=== PATIENT | female | born 1970 | race Two or more races ===

== ENCOUNTER → 2017-08-10 | Outpatient (CLI) | payer MEDICAID | END | disposition home or self-care (01) | LOC: Rad HDHVI 11:06 | PROVIDERS: ATTEND Internal Medicine | DX: I20.9 Angina pectoris, unspecified (principal); E78.5 Hyperlipidemia, unspecified | CPT/HCPCS: 93306 ==

== ENCOUNTER → 2017-08-26 | Outpatient (CLI) | payer MEDICAID ==
[~2017-08-26] VITALS: Ht 157.5 cm; Wt 93.4 kg
[~2017-08-26] MED LIST: ADENOSINE 78 MG in GIVE UN-DILUTED 0 ML IV ONE; ADENOSINE 90 MG/30 ML INJ IV ONE; ALBUAER3 IN; ATO40T PO; BACL20TA PO; BENA20TA14 PO; CLON1TAB3 PO; GABA-339 PO; LORA-622 PO; MELO1TAB56 PO; METO5TAB2 PO; MONT10TA34 PO; OMEP20TA PO; RANO500T2 PO; TERB250T66 PO
== END | disposition home or self-care (01) ==
LOC: Rad HDHVI 13:57
PROVIDERS: ATTEND Internal Medicine
DX: I10 Essential (primary) hypertension (principal); E78.5 Hyperlipidemia, unspecified; I20.9 Angina pectoris, unspecified; R63.8 Other symptoms and signs concerning food and fluid intake; G47.33 Obstructive sleep apnea (adult) (pediatric); R06.00 Dyspnea, unspecified; R06.02 Shortness of breath; R06.09 Other forms of dyspnea
CPT/HCPCS: 78452; 93005; 96374; 96375; A9500; J0153

== ENCOUNTER → 2017-09-18 | Outpatient (CLI) | payer MEDICAID ==
[~2017-09-18] MED LIST changes: -ADENOSINE 78 MG in GIVE UN-DILUTED 0 ML IV ONE; -ADENOSINE 90 MG/30 ML INJ IV ONE
[2017-09-18 10:20] VITALS: BP 140/93
[2017-09-18 10:45] VITALS: BP 133/84
[2017-09-18 12:08] LABS: Basophils # (auto) 0 uL; Basophils % (auto) 0.6 % (0.0-2.0); Eosinophils # (auto) 0.1 uL; Eosinophils % (auto) 1.5 % (0.0-7.0); Hematocrit 39.3 % (36.0-46.0); Hemoglobin 13.3 g/dL (12.2-16.2); Lymphocytes # (auto) 1.5 uL; Lymphocytes % (auto) 19.5 % (10.0-50.0); Mean Corpuscular Hemoglobin 29.8 pg (28.0-32.0); Mean Corpuscular Hgb Conc. 33.8 g/dL (32.0-36.0); Mean Corpuscular Volume 88.2 fL (80.0-100.0); Monocytes # (auto) 0.5 uL; Monocytes % (auto) 5.8 % (0.0-12.0); Neutrophils # (auto) 5.7 uL; Neutrophils % (auto) 72.6 % (37.0-80.0); Nucleated Red Blood Cells % 0.2 %; Platelet Count (auto) 225 10^3/uL (140-450); Red Blood Cells 4.45 10^6/uL (4.0-5.20); Red Cell Distribution Width 13.7 % (11.8-14.3); White Blood Cell 7.9 10^3/uL (4.4-10.8)
[2017-09-18 12:14] LABS: INR 0.95 (0.9-1.15); Partial Thromboplastin Time 28.7 sec (23.78-33.04); Prothrombin Time 10.2 sec (9.27-12.13)
[2017-09-18 12:19] LABS: BUN/Creatinine Ratio 18.9; Potassium 3.9 mmol/L (3.5-5.1)
== END | disposition home or self-care (01) ==
LOC: Rad HDHVI 10:06
PROVIDERS: ATTEND Internal Medicine
DX: Z01.818 Encounter for other preprocedural examination (principal); I10 Essential (primary) hypertension; E78.5 Hyperlipidemia, unspecified; R79.89 Other specified abnormal findings of blood chemistry
CPT/HCPCS: 36415; 71046; 80048; 85025; 85610; 85730; 93005; G0463

== ENCOUNTER 2017-09-23 07:00 | Day surgery (SDC) | payer MEDICAID ==
[~2017-09-23] VITALS: Ht 157.5 cm; Wt 95.3 kg
[2017-09-23] MEDS ORDERED: LIDOCAINE 2%HCL (LOCAL ANESTH.) INJ 20ML MDV ONE (07:39)
[2017-09-23] MEDS ORDERED: HEPARIN IN NS 1000Units/500mL 1,500 ML ONE (07:39)
[2017-09-23] MEDS ORDERED: IODIXANOL 320MG/ML 100ML BTL IV ONE (07:39)
[2017-09-23] MEDS ORDERED: MIDAZOLAM HCL 1MG/1ML-2 ML VIAL ONE (08:20)
[2017-09-23] MEDS ORDERED: fentaNYL CITRATE 100 MCG/2 ML VL ONE (08:20)
[2017-09-23] MEDS ORDERED: ANGIOMAX 250 MG VIAL IV ONE (08:20)
[2017-09-23] MEDS ORDERED: SODIUM CHL 0.9% 0 ML ONE (08:21)
== END 2017-09-23 11:10 | disposition home or self-care (01) ==
LOC: CATH 07:00
PROVIDERS: ATTEND Internal Medicine
DX: I25.10 Atherosclerotic heart disease of native coronary artery without angina pectoris (principal); E66.9 Obesity, unspecified; F41.9 Anxiety disorder, unspecified; I10 Essential (primary) hypertension; G47.33 Obstructive sleep apnea (adult) (pediatric); E78.5 Hyperlipidemia, unspecified; Z88.5 Allergy status to narcotic agent; Z68.38 Body mass index [BMI] 38.0-38.9, adult
CPT/HCPCS: C1760; C1894; J1644; J3010; J7030; 93458; 99152; J2250; Q9967

== ENCOUNTER → 2020-09-12 | Outpatient (CLI) | payer MEDICAID ==
[~2020-09-12] VITALS: Ht 157.5 cm; Wt 93.4 kg
[~2020-09-12] MED LIST changes: +CLON1TAB10 PO; -CLON1TAB3 PO; -MONT10TA34 PO; +MONT10TA42 PO
== END | disposition home or self-care (01) ==
LOC: Rad HDHVI 08:37
PROVIDERS: ATTEND Internal Medicine
DX: I10 Essential (primary) hypertension (principal); R07.9 Chest pain, unspecified; R06.02 Shortness of breath; E78.5 Hyperlipidemia, unspecified; J44.9 Chronic obstructive pulmonary disease, unspecified; Z82.49 Family history of ischemic heart disease and other diseases of the circulatory system
CPT/HCPCS: 78452; 93017; 96374; A9500

== ENCOUNTER → 2021-06-05 | Day surgery (SDC) | payer MEDICAID ==
[2021-06-03 09:20] LABS: Basophils # (auto) 0 10 ^3/uL (0-0.2); Basophils % (auto) 0.4 % (0.0-2.0); Eosinophils # (auto) 0.1 10 ^3/uL (0-0.8); Hematocrit 41.8 % (36.0-46.0); Hemoglobin 13.5 g/dL (12.2-16.2); Lymphocytes # (auto) 2.7 10 ^3/uL (0.4-5.4); Lymphocytes % (auto) 23.9 % (10.0-50.0); Mean Corpuscular Hemoglobin 28.3 pg (28.0-32.0); Mean Corpuscular Hgb Conc. 32.4 g/dL (32.0-36.0); Mean Corpuscular Volume 87.2 fL (80.0-100.0); Monocytes # (auto) 0.6 10 ^3/uL (0-1.3); Monocytes % (auto) 5.4 % (0.0-12.0); Neutrophils # (auto) 7.7 10 ^3/uL (1.6-8.6); Neutrophils % (auto) 69.3 % (37.0-80.0); Nucleated Red Blood Cells % 0.1 %; Red Blood Cells 4.79 10^6/uL (4.0-5.20); Red Cell Distribution Width 15.1 % (11.8-14.3); White Blood Cell 11.2 10^3/uL (4.4-10.8)
[2021-06-03 09:22] LABS: Urine Bacteria FEW /hpf (None Seen); Urine Blood Negative /uL (Negative); Urine Mucus FEW (None Seen); Urine Specific Gravity 1.022 (1.001-1.035); Urine WBC 3 /hpf (0 - 5)
[2021-06-03 09:59] LABS: Albumin 3.3 g/dL (3.4-5.0); BUN/Creatinine Ratio 29.3; Bilirubin, Total 0.6 mg/dL (0.2-1.0); Calcium 9.1 mg/dL (8.5-10.1); Total Protein 7.5 g/dL (6.4-8.2)
[~2021-06-05] VITALS: Ht 157.5 cm; Wt 93.9 kg
[~2021-06-05] MED LIST changes: +ALEN35TA18 PO; -BACL20TA PO; +BREX1TAB6 PO; +BUDE2SUS3 IN; +BUPIVACAINE HCL 50 ML ONE; +CLON-853 PO; -CLON1TAB10 PO; +DexAMETHasone SOD PHOS 10MG/1ML VIAL INJ ONE; +FLUO60TA7 PO; +FLUT0.05 NAS; +HYDR-3682 PO; +HYDR-4798 PO; +HYDR25TA5 PO; +HYDROmorphone HCL 2 MG/ML VL IV PRN; +LIDOCAINE 1% HCL (LOCAL ANESTH.) INJ 20ML MDV ONE; -MELO1TAB56 PO; +METO-158 PO; -METO5TAB2 PO; +METOCLOPRAMIDE HCL 5MG/ml INJ 2ml VIAL IV PRN; +MIDAZOLAM HCL 2MG/2ML 2ml VIAL (1mg/ml) ONE; +MONT-8 PO; -MONT10TA42 PO; +MORPHINE SULFATE INJECTION 2 MG/ML SYRG IV PRN; +ONDANSETRON HCL 4 MG/2 ML VIAL ONE; +PROPOFOL 10 MG/ML 20 ML IV ONE; -RANO500T2 PO; +SODIUM CHLORIDE LOCK 10 ML ONE; -TERB250T66 PO; +ceFAZolin 1GM/50ML 100 ML IV ONE; +fentaNYL CITRATE 100 MCG/2 ML VL ONE
[2021-06-05 10:30] VITALS: BP 112/71
== END | disposition home or self-care (01) ==
LOC: SUR 07:55
PROVIDERS: ATTEND Podiatrist
DX: M72.2 Plantar fascial fibromatosis (principal); I10 Essential (primary) hypertension; E66.9 Obesity, unspecified; E78.5 Hyperlipidemia, unspecified; F41.9 Anxiety disorder, unspecified; J45.909 Unspecified asthma, uncomplicated; K21.9 Gastro-esophageal reflux disease without esophagitis; Z90.49 Acquired absence of other specified parts of digestive tract; Z98.891 History of uterine scar from previous surgery; Z20.822 Contact with and (suspected) exposure to COVID-19; Z68.39 Body mass index [BMI] 39.0-39.9, adult
CPT/HCPCS: 28060; 36415; 80053; 81001; 85025; J0690; J1100; J2001; J2250; J2405; J2704; J3010; J3490; U0003